=== PATIENT | male | born 1985 | race Caucasian/White ===

== ENCOUNTER 2022-07-31 04:15 | Emergency (ER) | payer SELFPAY ==
[~2022-07-31] VITALS: Ht 170.2 cm; Wt 77.1 kg
[2022-07-31] MEDS ORDERED: CHLORDIAZEPOXID25 MG PO (04:21)
== END 2022-07-31 04:40 | disposition home or self-care (01) ==
LOC: ER 04:18
DX: F10.139 Alcohol abuse with withdrawal, unspecified (principal); F17.210 Nicotine dependence, cigarettes, uncomplicated
CPT/HCPCS: 99283

== ENCOUNTER 2023-02-01 05:50 | Emergency (ER) | payer SELFPAY ==
[~2023-02-01] VITALS: Ht 170.2 cm; Wt 77.1 kg
[~2023-02-01 05:50] MED LIST: CHLORDIAZEPOXID25 MG PO
[2023-02-01] MEDS ORDERED: CHLORDIAZEPOXID25 MG PO (06:32)
== END 2023-02-01 06:37 | disposition home or self-care (01) ==
LOC: ER 06:00
DX: F10.20 Alcohol dependence, uncomplicated (principal); F41.9 Anxiety disorder, unspecified
CPT/HCPCS: 99283